=== PATIENT | female | born 1995 | race Caucasian/White ===

== ENCOUNTER 2022-03-02 21:45 | Emergency (ER) | payer MEDICAID ==
[~2022-03-02] VITALS: Ht 162.6 cm; Wt 65.8 kg
[2022-03-02 21:54] VITALS: BP_SYST 132
--- NOTE | 2022-03-02 21:59 | NUR ---
Patient to ER bed 01 to gown for evaluation. Side rails up.
--- NOTE | 2022-03-02 22:04 | NUR ---
Pt brought by self,A&Ox4, pt presents to ER with lower abd pain , states she had a tampon stock on vaginal area since princess, pt afebrile, skin pink and warm, cap refill <3, VSS.
[2022-03-02 23:32] LABS: BILIRUBIN,URINE NEGATIVE (NEGATIVE); BLOOD, URINE 1+ (NEGATIVE); CLARITY/URINE CLEAR (CLEAR); COLOR,URINE YELLOW (YELLOW); GLUCOSE,URINE NEGATIVE (NEGATIVE); KETONES,URINE NEGATIVE (NEGATIVE); LEUKOCYTE ESTERASE ,URINE NEGATIVE (NEGATIVE); NITRITE, URINE NEGATIVE (NEGATIVE); PROTEIN URINE NEGATIVE (NEGATIVE); UROBILINOGEN,URINE 0.2 (0.2-1.0)
--- NOTE | 2022-03-03 00:14 | NUR ---
Pelvic exam performed by MD Diane with myself, Sanjana BOWERS at bedside for entire examination. Patient tolerated procedure well. Patient assisted to position of comfort after examination.
[2022-03-03 00:20] VITALS: BP_SYST 119
--- NOTE | 2022-03-03 00:54 | NUR ---
Patient given written and verbal discharge instructions and verbalizes understanding. ER MD Diane discussed with patient the results and treatment provided. Patient in stable condition. ID arm band removed. Patient educated on pain management and to follow up with PMD. Pain Scale 0/10. Opportunity for questions provided and answered. Medication side effect fact sheet provided.
== END 2022-03-03 00:20 | disposition home or self-care (01) ==
LOC: SED 21:45
DX: Z03.89 Encounter for observation for other suspected diseases and conditions ruled out (principal)
CPT/HCPCS: 81003; 99284; 99285

== ENCOUNTER 2022-12-07 02:39 | Emergency (ER) | payer MEDICAID ==
[~2022-12-07] VITALS: Ht 162.6 cm; Wt 70.3 kg
[2022-12-07 03:00] VITALS: BP_SYST 123
--- NOTE | 2022-12-07 03:00 | NUR ---
Patient ambulatory to bed 2 for evaluation and treatment
[2022-12-07] MEDS ORDERED: KETOROLAC TROMETHAMINE 60 MG/2 ML VIAL IM ONE (03:15)
--- NOTE | 2022-12-07 03:30 | NUR ---
The pt is situated in ED 2. AAO x4, VSS, RR even and unlaored. C/o ANBD pain. Denies N/V at this time. No s/sx of acute distress noted at this time.
[2022-12-07 04:01] LABS: BASOPHILS % (AUTO) 0.2 % (0.0-2.0); EOSINOPHILS % (AUTO) 0.5 % (0.0-4.0); HEMATOCRIT 39.8 % (36-48); HEMOGLOBIN 13.2 g/dL (12.0-16.0); LYMPHOCYTES # (AUTO) 1.1 K/uL (1.0-5.5); LYMPHOCYTES % (AUTO) 12.4 % (20.5-51.5); MEAN CORPUSCULAR HEMOGLOBIN 29 pg (27-31); MEAN CORPUSCULAR HGB CONC 33 % (32-36); MEAN CORPUSCULAR VOLUME 88 fL (79.0-98.0); MONOCYTES # (AUTO) 0.4 K/uL (0.0-1.0); MONOCYTES % (AUTO) 4.2 % (1.7-9.3); NEUTROPHILS # (AUTO) 7.3 K/uL (1.8-7.7); NEUTROPHILS % (AUTO) 82.7 % (40.0-70.0); PLATELET COUNT (AUTO) 243 K/uL (130-430); RED BLOOD CELL COUNT(AUTO) 4.53 MIL/uL (4.2-6.2); RED CELL DISTRIBUTION WIDTH 13.6 % (9.0-15.0); WHITE BLOOD COUNT (AUTO) 8.9 K/uL (4.8-10.8)
[2022-12-07 04:02] LABS: CALCIUM 9.3 mg/dL (8.4-11.0); CREATININE 0.6 mg/dL (0.55-1.30)
[2022-12-07 04:06] LABS: ALBUMIN 3.8 g/dL (3.4-4.8); TOTAL BILIRUBIN 0.2 mg/dL (0.0-1.0)
[2022-12-07] MEDS ORDERED: TRAM50TA2 PO (04:21)
[2022-12-07] MEDS ORDERED: NAPR-688 PO (04:21)
[2022-12-07 04:38] VITALS: BP_SYST 109
--- NOTE | 2022-12-07 04:41 | NUR ---
Patient given written and verbal discharge instructions and verbalizes understanding. ER MD discussed with patient the results and treatment provided. Patient in stable condition. ID arm band removed. IV catheter removed intact and dressing applied, no active bleeding. Rx of Naproxen and Tramadol given. Patient educated on pain management and to follow up with PMD. Pain Scale 0. Opportunity for questions provided and answered.
== END 2022-12-07 04:38 | disposition home or self-care (01) ==
LOC: SED 02:39
DX: K80.50 Calculus of bile duct without cholangitis or cholecystitis without obstruction (principal); R10.13 Epigastric pain; R11.0 Nausea; Z79.899 Other long term (current) drug therapy
CPT/HCPCS: 99283; 80053; 83690; 85025; 36415; 81025; 96372; J1885